=== PATIENT | male | born 1990 ===

== ENCOUNTER 2017-08-06 17:55 | Inpatient (IN) | payer BC ==
[2017-08-06] MEDS ORDERED: Sodium Chloride 0.9% 1,000 ML IV STA (19:02)
--- NOTE | 2017-08-06 19:10 | C.PDOC ---
History Of Present Illness 27 y/o M c PMHx HTN p/w subjective fevers, body aches, general weakness, congestion, facial pain x 5 days. Patient attempted OTC medications without resolution and states he is feeling worse so he came to ED. He denies cough, sick contacts, recent travel, leg swelling, hormone use, hemoptysis, previous DVT/PE, chest pain, dyspnea, vomiting. Patient has known HTN that is typically about 180 systolic and he just started HTN medication today. Time Seen by Provider: 08/06/17 18:41 Chief Complaint (Nursing): Flu-like Symptoms Past Medical History Vital Signs: Last Vital Signs Temp 98 F 08/06/17 21:18 Pulse 98 H 08/06/17 21:18 Resp 16 08/06/17 21:18 BP 134/81 08/06/17 21:18 Pulse Ox 98 08/06/17 21:40 - Medical History PMH: HTN Family History: States: No Known Family Hx - Social History Hx Alcohol Use: Yes Hx Substance Use: No - Immunization History Hx Tetanus Toxoid Vaccination: No Hx Influenza Vaccination: No Hx Pneumococcal Vaccination: No Review Of Systems Except As Marked, All Systems Reviewed And Found Negative. Cardiovascular: Negative for: Chest Pain Gastrointestinal: Negative for: Vomiting Physical Exam - Physical Exam Additional Physical Exam Comments: Constitutional: No acute distress. Head: Normocephalic. Atraumatic, L sided facial swelling and maxillary tenderness. Eyes: PERRL. ENT: Moist mucous membranes. Neck: Supple. Cardiovascular: Regular rate, Tachycardic. Radial pulse 2+ bilaterally. Chest: No tenderness. Respiratory: Clear to auscultation bilaterally. GI: Soft. Nontender. Nondistended. Back: No CVA tenderness. Musculoskeletal: No tenderness or swelling of extremities. Skin: No rash. Neurologic: Alert, no focal deficit. ED Course And Treatment - Laboratory Results Result Diagrams: 08/06/17 19:35 08/06/17 19:35 O2 Sat by Pulse Oximetry: 98 Medical Decision Making Medical Decision Making: EXAM: CT Maxillofacial With Intravenous Contrast EXAM DATE/TIME: 08/06/2017 7:04 PM CLINICAL HISTORY: 27 years old, male; Signs and symptoms; Other: Left side facial swelling; Additional info: Facial swelling, fever, R/O sinusitis/abscess TECHNIQUE: Axial computed tomography images of the face with intravenous contrast. All CT scans at this facility use one or more dose reduction techniques, viz.: automated exposure control; ma/ kV adjustment per patient size (including targeted exams where dose is matched to indication; i.e. head); or iterative reconstruction technique. Coronal and sagittal reformatted images were created and reviewed. CONTRAST: 100 mL of [id number] administered intravenously. COMPARISON: There are no prior studies for comparison. FINDINGS: Sinuses: There is pansinusitis. There is complete opacification of the left maxillary sinus. There is almost complete opacification of the right maxillary sinus. There is frontal opacification of the osteomeatal complexes. Bones: There are no facial bone fractures. There are degenerative changes in the upper cervical spine. Soft tissues: There is minimal right facial edema. There is edema in subcutaneous fat of the left cheek. Retropharyngeal soft tissues are unremarkable. Parapharyngeal spaces are symmetric. Brain: No focal abnormalities are seen in visualized portion of the brain. Vasculature: Vascular structures are unremarkable. Lymph nodes: There is shotty adenopathy. Orbits: Orbital contents are unremarkable. Salivary glands: Parotid and submandibular glands are unremarkable. Sinuses: See above. Mastoid air cells: Ears and mastoids: Middle ears and mastoids are unremarkable. Dental: Streak artifact from dental fillings degrades image quality. There are dental caries. There are apical erosions in the posterior left mandible. Airway: There is edema edema and mucosal thickening in the nasal cavity greatest on the left. There is no air reconstruction. Tonsils and adenoids: There is prominence of tonsils and adenoids. IMPRESSION: Pansinusitis; no facial abscess Patient with improved vital signs. UA with 30 WBC, pansinusitis on CT, leukocytosis, lactate 2.3. CODE SEPSIS was called. Patient without hypotension, hypertensive on arrival, will improve with IVF, no indication for 4L IVF in 30 minutes. Disposition - Disposition Disposition: HOSPITALIZED Disposition Time: 21:55 Condition: FAIR Forms: [facility] (Romansh) - POA Core Measure Indicators: Code Sepsis - Clinical Impression Clinical Impression: Sepsis, Acute pansinusitis
[2017-08-06 19:34] LABS: VENOUS BLOOD GAS PCO2 46 mmHg (40-60); VENOUS BLOOD GAS PO2 33 mm/Hg (30-55)
[2017-08-06] MEDS ORDERED: Sodium Chloride 0.9% 1,000 ML ONE (19:39)
[2017-08-06 19:49] LABS: BASO # 0.1 K/uL (0.0-0.2); BASO % 0.4 % (0.0-2.0); HEMOGLOBIN 18.4 g/dL (12.0-18.0); LYMPH # 1.4 K/uL (1.0-4.3); LYMPH % 8.7 % (20.0-40.0); MEAN CELL VOLUME 86.3 fL (80.0-94.0); MEAN CORPUSCULAR HEMOGLOBIN 29.5 pg (27.0-31.0); MEAN CORPUSCULAR HGB CONC 34.2 g/dL (33.0-37.0); MEAN PLATELET VOLUME 8.8 fL (7.2-11.7); MONO # 1.9 K/uL (0.0-0.8); MONO % 11.3 % (0.0-10.0); NEUT # 13.2 K/uL (1.8-7.0); NEUT % 79.6 % (50.0-75.0); NRBC % 0.1 % (0.0-2.0); PLATELET COUNT 325 K/uL (130-400); RBC 6.25 Mil/uL (4.40-5.90); RED CELL DISTRIBUTION WIDTH 14.1 % (11.5-14.5); WHITE BLOOD COUNT 16.6 K/uL (4.8-10.8)
[2017-08-06 19:58] LABS: ALBUMIN 4.5 g/dL (3.5-5.0); ALT/SGPT 34 U/L (21-72); AST/SGOT 26 U/L (17-59); BLOOD UREA NITROGEN 10 mg/dL (9-20); CALCIUM 9.1 mg/dl (8.6-10.4); GFR AFRICAN-AMERICAN > 60; GFR NON-AFRICAN AMERICAN > 60
[2017-08-06 20:02] LABS: ALB/GLOB RATIO 0.9 (1.0-2.1); SQUAMOUS EPITHIAL 1 /hpf (0-5); URINE BACTERIA RARE (<OCC); URINE BILIRUBIN NEGATIVE (NEGATIVE); URINE BLOOD NEGATIVE (NEGATIVE); URINE CLARITY Hazy (Clear); URINE COLOR Amber (YELLOW); URINE GLUCOSE (UA) 1+ mg/dL (Normal); URINE LEUKOCYTE ESTERASE NEG Leu/uL (Negative); URINE NITRATE NEGATIVE (NEGATIVE); URINE PROTEIN 2+ mg/dL (NEGATIVE)
[2017-08-06] MEDS ORDERED: Cefepime IV 2 gm in Dextrose 2 GM/100 ML BAG IVPB SCH (20:15)
[2017-08-06 20:51] LABS: LYMPHOCYTE 7 % (20-40); MONOCYTE 6 % (0-10); NEUTROPHIL 87 % (50-75); PLATELET ESTIMATE NORMAL (NORMAL); TOTAL CELLS COUNTED 100
[2017-08-06] MEDS ORDERED: Iodixanol 320 MG/ML 100 ML BOTTLE IV ONE (20:56)
--- NOTE | 2017-08-06 21:38 | CT ---
EXAM: CT Maxillofacial With Intravenous Contrast EXAM DATE/TIME: 08/06/2017 7:04 PM CLINICAL HISTORY: 27 years old, male; Signs and symptoms; Other: Left side facial swelling; Additional info: Facial swelling, fever, R/O sinusitis/abscess TECHNIQUE: Axial computed tomography images of the face with intravenous contrast. All CT scans at this facility use one or more dose reduction techniques, viz.: automated exposure control; ma/kV adjustment per patient size (including targeted exams where dose is matched to indication; i.e. head); or iterative reconstruction technique. Coronal and sagittal reformatted images were created and reviewed. CONTRAST: 100 mL of [id number] administered intravenously. COMPARISON: There are no prior studies for comparison. FINDINGS: Sinuses: There is pansinusitis. There is complete opacification of the left maxillary sinus. There is almost complete opacification of the right maxillary sinus. There is frontal opacification of the osteomeatal complexes. Bones: There are no facial bone fractures. There are degenerative changes in the upper cervical spine. Soft tissues: There is minimal right facial edema. There is edema in subcutaneous fat of the left cheek. Retropharyngeal soft tissues are unremarkable. Parapharyngeal spaces are symmetric. Brain: No focal abnormalities are seen in visualized portion of the brain. Vasculature: Vascular structures are unremarkable. Lymph nodes: There is shotty adenopathy. Orbits: Orbital contents are unremarkable. Salivary glands: Parotid and submandibular glands are unremarkable. Sinuses: See above. Mastoid air cells: Ears and mastoids: Middle ears and mastoids are unremarkable. Dental: Streak artifact from dental fillings degrades image quality. There are dental caries. There are apical erosions in the posterior left mandible. Airway: There is edema edema and mucosal thickening in the nasal cavity greatest on the left. There is no air reconstruction. Tonsils and adenoids: There is prominence of tonsils and adenoids. IMPRESSION: Pansinusitis; no facial abscess
[2017-08-06] MEDS: Sodium Chloride 0.9% 1,000 ML IV SCH (22:17)
[2017-08-06 22:42] LABS: VENOUS BLOOD GAS BASE EXCESS -0.2 mmol/L (0.0-2.0); VENOUS BLOOD GAS PCO2 44 mmHg (40-60); VENOUS BLOOD GAS PO2 35 mm/Hg (30-55); VENOUS BLOOD PH 7.37 (7.32-7.43)
[2017-08-07] MEDS ORDERED: guaiFENesin 600 mg ER Tab PO ONE (04:42)
--- NOTE | 2017-08-07 08:32 | RAD ---
HISTORY: fever COMPARISON: No prior. TECHNIQUE: Chest PA and lateral FINDINGS: LUNGS: No evidence of focal infiltrate or consolidation in the lungs. PLEURA: No significant pleural effusion identified. No pneumothorax apparent. CARDIOVASCULAR: Normal. OSSEOUS STRUCTURES: No significant abnormalities. VISUALIZED UPPER ABDOMEN: Normal. OTHER FINDINGS: None. IMPRESSION: No active disease.
[2017-08-07] MEDS ORDERED: AMLODIPIN PO SCH (10:00)
[2017-08-07] MEDS ORDERED: HCTHIAZID PO SCH (10:00)
[2017-08-07] MEDS ORDERED: Cefepime 1 GM in Sodium Chloride 0.9% 50 ML IVPB SCH (10:00)
[2017-08-07] MEDS ORDERED: Home Med 1 UNIT (Levocetirizine Dihydrochloride [Levocetirizine Dihydrochloride] 5 MG) PO SCH (10:00)
[2017-08-07] MEDS ORDERED: OLMESARTAN PO SCH (10:00)
[2017-08-07] MEDS: Enoxaparin 40 mg Syringe SC SCH (10:05)
[2017-08-07] MEDS: Pantoprazole 40 mg EC Tab PO SCH (10:05)
[2017-08-07] MEDS: Sodium Chloride 0.9% 1,000 ML IV SCH (13:55)
[2017-08-07] MEDS ORDERED: Potassium Chloride 20 mEq ER Tab PO STA (14:55)
--- NOTE | 2017-08-07 15:39 | CP.PCM.HP ---
Past Patient History - Infectious Disease Hx of Infectious Diseases: None - Past Medical History & Family History Past Medical History?: Yes - Past Social History Smoking Status: hookah - CARDIAC Hx Hypertension: Yes - MUSCULOSKELETAL/RHEUMATOLOGICAL Hx Falls: No - PSYCHIATRIC Hx Substance Use: No - SURGICAL HISTORY Hx Surgeries: No - ANESTHESIA Hx Anesthesia: No Meds Allergies/Adverse Reactions: Allergies Allergy/AdvReac Type Severity Reaction Status Date / Time No Known Allergies Allergy Verified 08/06/17 18:01 Physical Exam - Constitutional Appears: Well - Head Exam Head Exam: ATRAUMATIC, NORMAL INSPECTION, NORMOCEPHALIC - Eye Exam Eye Exam: EOMI, Normal appearance, PERRL Pupil Exam: NORMAL ACCOMODATION, PERRL - ENT Exam ENT Exam: Mucous Membranes Moist, Normal Exam - Neck Exam Neck exam: Positive for: Normal Inspection - Respiratory Exam Respiratory Exam: Decreased Breath Sounds - Cardiovascular Exam Cardiovascular Exam: REGULAR RHYTHM, +S1, +S2 - GI/Abdominal Exam GI & Abdominal Exam: Diminished Bowel Sounds, Soft - Rectal Exam Rectal Exam: Deferred Results - Vital Signs Recent Vital Signs: Last Vital Signs Temp 98.6 F 08/07/17 09:00 Pulse 110 H 08/07/17 13:30 Resp 20 08/07/17 08:17 BP 160/87 H 08/07/17 11:30 Pulse Ox 98 08/07/17 08:17 - Labs Result Diagrams: 08/06/17 19:35 08/06/17 19:35 Labs: Laboratory Results - last 24 hr 08/06/17 08/06/17 08/06/17 19:00 19:28 19:35 WBC 16.6 H RBC 6.25 H Hgb 18.4 H Hct 53.9 H MCV 86.3 MCH 29.5 MCHC 34.2 RDW 14.1 Plt Count 325 MPV 8.8 Neut % (Auto) 79.6 H Lymph % (Auto) 8.7 L [place] % (Auto) 11.3 H Eos % (Auto) 0.0 Baso % (Auto) 0.4 Neut # 13.2 H Lymph # 1.4 [place] # 1.9 H Eos # 0.0 Baso # 0.1 Neutrophils % (Manual) 87 H Lymphocytes % (Manual) 7 L Monocytes % (Manual) 6 Platelet Estimate Normal pO2 33 VBG pH 7.40 VBG pCO2 46 VBG HCO3 26.3 VBG Total CO2 29.9 H VBG O2 Sat (Calc) 71.0 H VBG Base Excess 3.0 H VBG Potassium 3.9 Sodium 135.0 Chloride 99.0 Glucose 139 H Lactate 2.3 H Potassium Carbon Dioxide Anion Gap BUN Creatinine Est GFR ( Amer) Est GFR (Non-Af Amer) Random Glucose Calcium Total Bilirubin AST ALT Alkaline Phosphatase Total Protein Albumin Globulin Albumin/Globulin Ratio Venous Blood Potassium 3.9 Urine Color Urine Clarity Urine pH Ur Specific [place] Urine Protein Urine Glucose (UA) Urine Ketones Urine Blood Urine Nitrate Urine Bilirubin Urine Urobilinogen Ur Leukocyte Esterase Urine WBC (Auto) Urine RBC (Auto) Ur Squamous Epith Cells Urine Bacteria Influenza Typ A,B (EIA) Negative for flu a/b 08/06/17 08/06/17 08/06/17 19:35 19:35 22:38 WBC RBC Hgb Hct MCV MCH MCHC RDW Plt Count MPV Neut % (Auto) Lymph % (Auto) [place] % (Auto) Eos % (Auto) Baso % (Auto) Neut # Lymph # [place] # Eos # Baso # Neutrophils % (Manual) Lymphocytes % (Manual) Monocytes % (Manual) Platelet Estimate pO2 35 VBG pH 7.37 VBG pCO2 44 VBG HCO3 23.9 VBG Total CO2 26.8 VBG O2 Sat (Calc) 73.6 H VBG Base Excess -0.2 L VBG Potassium 3.7 Sodium 131 L 134.0 Chloride 94 L 102.0 Glucose 132 H Lactate 1.7 Potassium 3.5 L Carbon Dioxide 27 Anion Gap 14 BUN 10 Creatinine 1.1 Est GFR ( Amer) > 60 Est GFR (Non-Af Amer) > 60 Random Glucose 144 H Calcium 9.1 Total Bilirubin 1.5 H AST 26 ALT 34 Alkaline Phosphatase 108 Total Protein 9.3 H Albumin 4.5 Globulin 4.8 H Albumin/Globulin Ratio 0.9 L Venous Blood Potassium 3.7 Urine Color [place] Urine Clarity Hazy Urine pH 6.0 Ur Specific [place] 1.023 Urine Protein 2+ H Urine Glucose (UA) 1+ H Urine Ketones Negative Urine Blood Negative Urine Nitrate Negative Urine Bilirubin Negative Urine Urobilinogen 4.0 Ur Leukocyte Esterase Neg Urine WBC (Auto) 30 H Urine RBC (Auto) 2 Ur Squamous Epith Cells 1 Urine Bacteria Rare Influenza Typ A,B (EIA)
[2017-08-07] MEDS: HYDROmorphone 1 mg/ml ISec IVP PRN (15:59)
[2017-08-08 07:33] LABS: BASO # 0.1 K/uL (0.0-0.2); BASO % 0.5 % (0.0-2.0); EOS % 0.1 % (0.0-4.0); LYMPH # 3.7 K/uL (1.0-4.3); LYMPH % 30.5 % (20.0-40.0); MEAN CELL VOLUME 86.9 fL (80.0-94.0); MEAN CORPUSCULAR HEMOGLOBIN 29.8 pg (27.0-31.0); MEAN CORPUSCULAR HGB CONC 34.3 g/dL (33.0-37.0); MEAN PLATELET VOLUME 8.7 fL (7.2-11.7); MONO # 1.4 K/uL (0.0-0.8); MONO % 11.5 % (0.0-10.0); NEUT # 6.9 K/uL (1.8-7.0); NEUT % 57.4 % (50.0-75.0); NRBC % 0.1 % (0.0-2.0); RBC 5.37 Mil/uL (4.40-5.90); RED CELL DISTRIBUTION WIDTH 14.3 % (11.5-14.5); WHITE BLOOD COUNT 12.1 K/uL (4.8-10.8)
[2017-08-08 07:36] LABS: ALB/GLOB RATIO 0.9 (1.0-2.1); ALBUMIN 3.5 g/dL (3.5-5.0); ALT/SGPT 37 U/L (21-72); AST/SGOT 38 U/L (17-59); BLOOD UREA NITROGEN 9 mg/dL (9-20); CALCIUM 7.8 mg/dl (8.6-10.4); GFR AFRICAN-AMERICAN > 60; GFR NON-AFRICAN AMERICAN > 60
[2017-08-08] MEDS: Enoxaparin 40 mg Syringe SC SCH (09:50)
[2017-08-08] MEDS: Pantoprazole 40 mg EC Tab PO SCH (09:50)
[2017-08-08] MEDS: HYDROCHLOROTHIAZIDE PO SCH (09:51)
[2017-08-08] MEDS: OLMESARTAN PO SCH (09:51)
[2017-08-08] MEDS: AMLODIPINE PO SCH (09:51)
--- NOTE | 2017-08-08 10:09 | CP.PCM.PN ---
Subjective - Date & Time of Evaluation Date of Evaluation: 08/08/17 Time of Evaluation: 10:09 - Subjective Subjective: PGY2 medicine progress note for Dr. Renee's service Patient seen and examined. Patient is a 27 year old male with PMHx HTN. He states he was treated by his PMD for a sinus infection in June 2017 without complete resolution. Patient did not have follow up with his PMD after his treatment course of antibiotics. Patient states that he felt his symptoms of nasal congestion, head pressure, and headache worsening last Monday and he began OTC cold medications. He states that over the weekend he felt very weak and had no energy and decided to come to the hospital. Patient was Code Sepsis in the ER with elevated WBC, fever 100.5, and elevated lactate. Patient currently complains of left facial pressure and pain in teeth in left maxilla. Patient reports good appetite and denies nausea, vomiting, fever, chills. Objective - Vital Signs/Intake and Output Vital Signs (last 24 hours): Temp Pulse Resp BP Pulse Ox 98.8 F 98 H 18 168/95 H 98 08/08/17 08:24 08/08/17 09:48 08/08/17 08:24 08/08/17 09:48 08/08/17 08:24 Intake and Output: 08/08/17 08/08/17 06:59 18:59 Intake Total 1280 Balance 1280 - Medications Medications: Current Medications Acetaminophen (Tylenol 325mg Tab) 650 mg PO Q6 PRN PRN Reason: Fever >100.4 F Last Admin: 08/07/17 08:00 Dose: 650 mg Amlodipine Besylate (Norvasc) 5 mg PO DAILY [facility] Last Admin: 08/08/17 09:50 Dose: 5 mg Enoxaparin Sodium (Lovenox) 40 mg SC DAILY [facility] Last Admin: 08/08/17 09:50 Dose: 40 mg Home Med (Patient's Own Medication) 1 tab PO DAILY [facility] Last Admin: 08/08/17 09:51 Dose: 1 tab Hydromorphone HCl (Dilaudid) 1 mg IVP Q8 PRN PRN Reason: pain Last Admin: 08/07/17 15:59 Dose: 1 mg Sodium Chloride (Sodium Chloride 0.9%) 1,000 mls @ 60 mls/hr IV .[id number] [facility] Last Admin: 08/07/17 13:55 Dose: 60 mls/hr Cefepime HCl 1 gm/ Dextrose 50 mls @ 100 mls/hr IVPB Q12H [facility] Last Admin: 08/08/17 00:10 Dose: 100 mls/hr Loratadine (Claritin) 10 mg PO DAILY [facility] Last Admin: 08/08/17 09:50 Dose: 10 mg Pantoprazole Sodium (Protonix Ec Tab) 40 mg PO DAILY [facility] Last Admin: 08/08/17 09:50 Dose: 40 mg Prednisone (Prednisone Tab) 20 mg PO DAILY [facility] Last Admin: 08/08/17 09:50 Dose: 20 mg Pseudoephedrine HCl (Sudafed Tab) 60 mg PO BID [facility] Last Admin: 08/08/17 09:50 Dose: 60 mg - Labs Labs: 08/08/17 07:09 08/08/17 07:09 - Constitutional Appears: No Acute Distress - Head Exam Head Exam: ATRAUMATIC, NORMOCEPHALIC Additional comments: tenderness on palpation of left frontal sinus, left maxillary sinus - Eye Exam Eye Exam: EOMI - ENT Exam ENT Exam: Mucous Membranes Dry Additional comments: multiple carious teeth - Respiratory Exam Respiratory Exam: Clear to Ausculation Bilateral - Cardiovascular Exam Cardiovascular Exam: +S1, +S2 - GI/Abdominal Exam GI & Abdominal Exam: Soft, Normal Bowel Sounds. absent: Tenderness - Extremities Exam Extremities Exam: Normal Inspection. absent: Pedal Edema - Neurological Exam Neurological Exam: Alert, Awake, Oriented x3 - Psychiatric Exam Psychiatric exam: Normal Affect - Skin Skin Exam: Dry, Warm Assessment and Plan - Assessment and Plan (Free Text) Assessment: Pansinusitis CT Face with IV contrast: complete opacification of the left maxillary sinus. There is almost complete opacification of the right maxillary sinus. There is frontal opacification of the osteomeatal complexes. There is minimal right facial edema. There is edema in subcutaneous fat of the left cheek. Retropharyngeal soft tissues are unremarkable. Parapharyngeal spaces are symmetric. IMPRESSION: Pansinusitis; no facial abscess Continue Cefepime 1g Q12h continue Claritin 10mg PO daily Continue Sudafed 60mg PO BID discontinue Prednisone 20mg PO Daily Patient was Code Sepsis on Admission 08/06/17 with temp 100.5, WBC 16.6, lactate 2.3 with source of infection Repeat lactate 08/06/[address] Huerta, ID, consulted, help appreciated Dr. Vega, ENT, consulted, help appreciated HTN patient recently started on combination pill: Olmersartan 20mg/ Norvasc 5mg/ HCTZ 12.5mg- continue while inpatient additional 5mg Norvasc daily will continue to monitor Prophylaxis protonix 40mg PO Daily Lovenox 40mg sc daily All medical management as per Dr. Renee
--- NOTE | 2017-08-08 11:40 | CP.PCM.PN ---
Subjective - Date & Time of Evaluation Date of Evaluation: 08/08/17 Time of Evaluation: 14:20 - Subjective Subjective: clinically same Objective - Vital Signs/Intake and Output Vital Signs (last 24 hours): Temp Pulse Resp BP Pulse Ox 98.8 F 98 H 18 168/95 H 98 08/08/17 08:24 08/08/17 09:48 08/08/17 08:24 08/08/17 09:48 08/08/17 08:24 Intake and Output: 08/08/17 08/08/17 06:59 18:59 Intake Total 1280 Balance 1280 - Medications Medications: Current Medications Acetaminophen (Tylenol 325mg Tab) 650 mg PO Q6 PRN PRN Reason: Fever >100.4 F Last Admin: 08/07/17 08:00 Dose: 650 mg Amlodipine Besylate (Norvasc) 5 mg PO DAILY [facility] Last Admin: 08/08/17 09:50 Dose: 5 mg Enoxaparin Sodium (Lovenox) 40 mg SC DAILY [facility] Last Admin: 08/08/17 09:50 Dose: 40 mg Home Med (Patient's Own Medication) 1 tab PO DAILY [facility] Last Admin: 08/08/17 09:51 Dose: 1 tab Hydromorphone HCl (Dilaudid) 1 mg IVP Q8 PRN PRN Reason: pain Last Admin: 08/07/17 15:59 Dose: 1 mg Sodium Chloride (Sodium Chloride 0.9%) 1,000 mls @ 60 mls/hr IV .[id number] [facility] Last Admin: 08/07/17 13:55 Dose: 60 mls/hr Cefepime HCl 1 gm/ Dextrose 50 mls @ 100 mls/hr IVPB Q12H [facility] Last Admin: 08/08/17 11:32 Dose: 100 mls/hr Loratadine (Claritin) 10 mg PO DAILY [facility] Last Admin: 08/08/17 09:50 Dose: 10 mg Pantoprazole Sodium (Protonix Ec Tab) 40 mg PO DAILY [facility] Last Admin: 08/08/17 09:50 Dose: 40 mg Prednisone (Prednisone Tab) 20 mg PO DAILY [facility] Last Admin: 08/08/17 09:50 Dose: 20 mg Pseudoephedrine HCl (Sudafed Tab) 60 mg PO BID [facility] Last Admin: 08/08/17 09:50 Dose: 60 mg - Labs Labs: 08/08/17 07:09 08/08/17 07:09 - Constitutional Appears: Well - Head Exam Head Exam: ATRAUMATIC, NORMAL INSPECTION, NORMOCEPHALIC - Eye Exam Eye Exam: EOMI, Normal appearance, PERRL Pupil Exam: NORMAL ACCOMODATION, PERRL - ENT Exam ENT Exam: Mucous Membranes Moist, Normal Exam - Respiratory Exam Respiratory Exam: Decreased Breath Sounds - Cardiovascular Exam Cardiovascular Exam: REGULAR RHYTHM, +S1, +S2 - GI/Abdominal Exam GI & Abdominal Exam: Soft, Diminished Bowel Sounds - Rectal Exam Rectal Exam: Deferred
--- NOTE | 2017-08-08 13:20 | CARD ---
APPROVED REPORT EKG Measurement Heart [id number] <Conclusion> Sinus tachycardia Voltage criteria for left ventricular hypertrophy T wave abnormality, consider lateral ischemia Abnormal ECG
--- NOTE | 2017-08-08 16:24 | CP.PCM.CON ---
History of Present Illness - History of Present Illness History of Present Illness: 27 y/o M c PMHx HTN p/w subjective fevers, body aches, general weakness, congestion, facial pain x 5 days. Patient attempted OTC medications without resolution and states he is feeling worse so he came to ED. He denies cough, sick contacts, recent travel, leg swelling, hormone use, hemoptysis, previous DVT/PE, chest pain, dyspnea, vomiting. Patient has known HTN that is typically about 180 systolic and he just started HTN medication today. referred for id eval severe pansinusitis Review of Systems - Constitutional Constitutional: As Per HPI, Chills, Headache - EENT Eyes: As Per HPI, Pain. absent: Blurred Vision, Exophthalmos Ears: absent: As Per HPI, Decreased Hearing, Ear Discharge, Ear Pain, Tinnitus, Abnormal Hearing, Disequilibrium, Dizziness, Other Nose/Mouth/Throat: As Per HPI, Nasal Congestion, Nasal Discharge, Nose Pain - Cardiovascular Cardiovascular: absent: As Per HPI, Acrocyanosis, Chest Pain, Chest Pain at Rest , Chest Pain with Activity, Claudication, Diaphoresis, Dyspnea, Dyspnea on Exertion, Edema, Irregular Heart Rhythm, Pain Radiating to Arm/Neck/Jaw, Leg Edema, Leg Ulcers, Lightheadedness, Orthopnea, Palpitations, Paroxysmal Nocturnal Dyspnea, Pedal Edema, Radiating Pain, Rapid Heart Rate, Slow Heart Rate, Syncope, Other - Respiratory Respiratory: absent: As Per HPI, Cough, Dyspnea, Hemoptysis, Dyspnea on Exertion , Wheezing, Snoring, Stridor, Pain on Inspiration, Chest Congestion, Excessive Mucous Production, Change in Mucous Color, Pain with Coughing, Other - Gastrointestinal Gastrointestinal: absent: As Per HPI, Abdominal Pain, Belching, Bloating, Change in Bowel Habits, Change in Stool Character, Coffee Ground Emesis, Constipation, Cramping, Diarrhea, Dyspepsia, Dysphagia, Early Satiety, Excessive Flatus, Fecal Incontinence, Heartburn, Hematemesis, Hematochezia, Loose Stools, Melena, Nausea, Odynophagia, Temesmus, Vomiting, Other - Genitourinary Genitourinary: absent: As Per HPI, Change in Urinary Stream, Difficulty Urinating, Dysuria, Flank Pain, Hematuria, Pyuria, Nocturia, Urinary Incontinence, Urinary Frequency, Urinary Hesitance, Urinary Urgency, Voiding Freq/Small Amts, Freq UTI, Hx Renal/Bladder Calculi, Hx /Renal Surgery, Bladder Distension, Other - Musculoskeletal Musculoskeletal: absent: As Per HPI, Abnormal Gait, Arthralgias, Atrophy, Back Pain, Deformity, Joint Swelling, Limited Range of Motion, Loss of Height, Muscle Cramps, Muscle Weakness, Myalgias, Neck Pain, Numbness, Radiating Pain into Limb, Stiffness, Tingling, Other - Integumentary Integumentary: absent: As Per HPI, Acne, Alopecia, Bleeding Lesions, Change in Hair, Change in Nails, Change in Pigmentation, Changing Lesions, Dry Skin, Erythema, Furuncle, Hirsutism, Lesions, New Lesions, Non-Healing Lesions, Photosensitivity, Pruritus, Rash, Skin Pain, Skin Ulcer, Sores, Striae, Swelling , Unusual Bruising, Wounds, Jaundice, Other - Neurological Neurological: absent: As Per HPI, Abnormal Gait, Abnormal Hearing, Abnormal Movements, Abnormal Speech, Behavioral Changes, Burning Sensations, Confusion, Convulsions, Disequilibrium, Dizziness, Numbness, Focal Weakness, Frequent Falls , Headaches, Lack of Coordination, Loss of Vision, Memory Loss, Paresthesias, Radicular Pain, Restless Legs, Sensory Deficit, Syncope, Tingling, Tremor, Vertigo, Weakness, Other Visual Disturbances, Other - Psychiatric Psychiatric: absent: As Per HPI, Abnormal Sleep Pattern, Anhedonia, Anxiety, Auditory Hallucinations, Behavioral Changes, Change in Appetite, Change in Libido, Confusion, Depression, Difficulty Concentrating, Hallucinations, Homicidal Ideation, Hopelessness, Irritability, Memory Loss, Mood Swings, Panic Attacks, Paranoia, Suicidal Ideation, Visual Hallucinations, Tactile Hallucinations, Other - Endocrine Endocrine: absent: As Per HPI, Change in Body Appearance, Change in Libido, Cold Intolorance, Deepening of Voice, Excessive Sweating, Fatigue, Flushing, Heat Intolorance, Increase in Ring/Shoe/Hat Size, Palpitations, Polydipsia, Polyphagia, Polyuria, Other - Hematologic/Lymphatic Hematologic: absent: As Per HPI, Easy Bleeding, Easy Bruising, Lymphadenopathy, Other Past Patient History - Infectious Disease Hx of Infectious Diseases: None - Past Medical History & Family History Past Medical History?: Yes - Past Social History Smoking Status: hookah - CARDIAC Hx Hypertension: Yes - MUSCULOSKELETAL/RHEUMATOLOGICAL Hx Falls: No - PSYCHIATRIC Hx Substance Use: No - SURGICAL HISTORY Hx Surgeries: No - ANESTHESIA Hx Anesthesia: No Meds Allergies/Adverse Reactions: Allergies Allergy/AdvReac Type Severity Reaction Status Date / Time No Known Allergies Allergy Verified 08/06/17 18:01 - Medications Medications: Current Medications Acetaminophen (Tylenol 325mg Tab) 650 mg PO Q6 PRN PRN Reason: Fever >100.4 F Last Admin: 08/07/17 08:00 Dose: 650 mg Amlodipine Besylate (Norvasc) 5 mg PO DAILY [facility] Last Admin: 08/08/17 09:50 Dose: 5 mg Enoxaparin Sodium (Lovenox) 40 mg SC DAILY [facility] Last Admin: 08/08/17 09:50 Dose: 40 mg Home Med (Patient's Own Medication) 1 tab PO DAILY [facility] Last Admin: 08/08/17 09:51 Dose: 1 tab Hydromorphone HCl (Dilaudid) 1 mg IVP Q8 PRN PRN Reason: pain Last Admin: 08/07/17 15:59 Dose: 1 mg Sodium Chloride (Sodium Chloride 0.9%) 1,000 mls @ 60 mls/hr IV .[id number] [facility] Last Admin: 08/07/17 13:55 Dose: 60 mls/hr Cefepime HCl 1 gm/ Dextrose 50 mls @ 100 mls/hr IVPB Q12H [facility] Last Admin: 08/08/17 11:32 Dose: 100 mls/hr Loratadine (Claritin) 10 mg PO DAILY [facility] Last Admin: 08/08/17 09:50 Dose: 10 mg Pantoprazole Sodium (Protonix Ec Tab) 40 mg PO DAILY [facility] Last Admin: 08/08/17 09:50 Dose: 40 mg Prednisone (Prednisone Tab) 20 mg PO DAILY [facility] Last Admin: 08/08/17 09:50 Dose: 20 mg Pseudoephedrine HCl (Sudafed Tab) 60 mg PO BID [facility] Last Admin: 08/08/17 09:50 Dose: 60 mg Physical Exam - Constitutional Appears: No Acute Distress - Head Exam Head Exam: ATRAUMATIC, NORMAL INSPECTION, NORMOCEPHALIC - Eye Exam Eye Exam: EOMI, Normal appearance Pupil Exam: NORMAL ACCOMODATION - ENT Exam ENT Exam: Mucous Membranes Dry, Normal Oropharynx - Neck Exam Neck exam: Negative for: Lymphadenopathy - Respiratory Exam Respiratory Exam: Clear to Auscultation Bilateral, Rhonchi - Cardiovascular Exam Cardiovascular Exam: REGULAR RHYTHM, +S1, +S2 - GI/Abdominal Exam GI & Abdominal Exam: Diminished Bowel Sounds, Soft. absent: Tenderness - Rectal Exam Rectal Exam: Deferred - Exam Exam: NORMAL INSPECTION - Extremities Exam Extremities exam: Positive for: pedal pulses present. Negative for: calf tenderness, tenderness - Back Exam Back exam: absent: CVA tenderness (L), CVA tenderness (R) - Neurological Exam Neurological exam: Alert, CN II-XII Intact, Oriented x3 - Psychiatric Exam Psychiatric exam: Normal Mood - Skin Skin Exam: Dry Results - Vital Signs Recent Vital Signs: Last Vital Signs Temp 98.4 F 08/08/17 15:00 Pulse 93 H 08/08/17 16:00 Resp 20 08/08/17 15:00 BP 171/95 H 08/08/17 15:00 Pulse Ox 99 08/08/17 15:00 - Labs Result Diagrams: 08/08/17 07:09 08/08/17 07:09 Labs: Laboratory Results - last 24 hr 08/08/17 08/08/17 07:09 07:09 WBC 12.1 H RBC 5.37 Hgb 16.0 D Hct 46.6 MCV 86.9 MCH 29.8 MCHC 34.3 RDW 14.3 Plt Count 284 MPV 8.7 Neut % (Auto) 57.4 Lymph % (Auto) 30.5 [place] % (Auto) 11.5 H Eos % (Auto) 0.1 Baso % (Auto) 0.5 Neut # 6.9 Lymph # 3.7 [place] # 1.4 H Eos # 0.0 Baso # 0.1 Sodium 133 Potassium 3.9 Chloride 100 Carbon Dioxide 26 Anion Gap 10 BUN 9 Creatinine 0.8 Est GFR ( Amer) > 60 Est GFR (Non-Af Amer) > 60 Random Glucose 105 Calcium 7.8 L Total Bilirubin 0.9 AST 38 ALT 37 Alkaline Phosphatase 71 Total Protein 7.2 Albumin 3.5 D Globulin 3.7 Albumin/Globulin Ratio 0.9 L Assessment & Plan (1) Acute pansinusitis Status: Acute (2) Sepsis Status: Acute - Assessment and Plan (Free Text) Assessment: sever pansinusitis resolving sepsis cont iv antibiotics check HIV status
[2017-08-08] MEDS: HYDROmorphone 1 mg/ml ISec IVP PRN (16:56)
--- NOTE | 2017-08-08 18:08 | CON ---
DATE: 08/08/2017 REASON FOR CONSULTATION: Sinusitis. REQUESTING PHYISICAN: Dr. Renee. HISTORY OF PRESENT ILLNESS: This is a 27-year-old male with a 2-year history of sinus pain, congestion, that is on and off with runny nose. It is moderate in intensity, comes and goes and lasting a few days, gets better with medicine. It is on both sides of the face and nose. PAST MEDICAL HISTORY: As noted in the chart by me. MEDICATIONS: As noted in the chart by me. ALLERGIES: THERE IS NO KNOWN DRUG ALLERGY. PHYSICAL EXAMINATION: HEAD: Atraumatic, normocephalic. FACE: Good facial movements bilaterally. CONSTITUTIONAL: Well fed, well nourished. COMMUNICATION: Communicates well and appropriately. EXTERNAL NOSE AND EARS: No masses. No lesions. No erythema. No edema. INTERNAL NOSE: Deviated septum. Possible erythema and edema of the mucosa. ORAL CAVITY AND OROPHARYNX: No masses. No lesions. No erythema. No edema. LIPS AND GUMS: No masses. No lesions. No erythema. No edema. NECK: Supple. THYROID: No thyromegaly. No goiter. LYMPH NODES: No lymphadenopathy of the neck. SINUSES: Palpation of the sinuses, there is some pressure over the maxillary, ethmoid, and frontal sinuses. DIAGNOSTIC: CAT scan was checked by me, it shows pansinusitis. ASSESSMENT: 1. Pansinusitis. 2. Deviated septum. PLAN: Patient is okay to be discharged home on p.o. antibiotics and possible steroids or decongestants. He should follow up as an outpatient in the office. Andi Vega MD
[2017-08-09 07:33] LABS: BASO # 0.1 K/uL (0.0-0.2); BASO % 0.6 % (0.0-2.0); EOS # 0.1 K/uL (0.0-0.7); EOS % 0.8 % (0.0-4.0); LYMPH # 3.4 K/uL (1.0-4.3); LYMPH % 33.9 % (20.0-40.0); MEAN CELL VOLUME 87.5 fL (80.0-94.0); MEAN CORPUSCULAR HEMOGLOBIN 29.7 pg (27.0-31.0); MEAN CORPUSCULAR HGB CONC 33.9 g/dL (33.0-37.0); MEAN PLATELET VOLUME 8.8 fL (7.2-11.7); MONO % 10.5 % (0.0-10.0); NEUT # 5.4 K/uL (1.8-7.0); NEUT % 54.2 % (50.0-75.0); RBC 5.39 Mil/uL (4.40-5.90); RED CELL DISTRIBUTION WIDTH 14.2 % (11.5-14.5)
[2017-08-09 08:06] LABS: ALB/GLOB RATIO 0.9 (1.0-2.1); ALBUMIN 3.6 g/dL (3.5-5.0); ALT/SGPT 60 U/L (21-72); AST/SGOT 52 U/L (17-59); BLOOD UREA NITROGEN 12 mg/dL (9-20); CALCIUM 8.3 mg/dl (8.6-10.4); GFR AFRICAN-AMERICAN > 60; GFR NON-AFRICAN AMERICAN > 60
[2017-08-09] MEDS: Pantoprazole 40 mg EC Tab PO SCH (09:08)
[2017-08-09] MEDS: Enoxaparin 40 mg Syringe SC SCH (09:08)
[2017-08-09] MEDS: OLMESARTAN PO SCH (09:09)
[2017-08-09] MEDS: HYDROCHLOROTHIAZIDE PO SCH (09:09)
[2017-08-09] MEDS: AMLODIPINE PO SCH (09:09)
--- NOTE | 2017-08-09 09:43 | CP.PCM.PN ---
Subjective - Date & Time of Evaluation Date of Evaluation: 08/09/17 Time of Evaluation: 10:07 - Subjective Subjective: PGY 2 Medicine Note- Dr. Zhang Renee's service Pt seen and examined in no acute distress. Patient states that he still feels congested; however overall improved from initial day of presentation. Patient states that denies sinus tenderness or headaches. He does admit to left sided sinus pressure with palpation. He additionally denies subjective fevers or chills, nausea, vomiting, headaches at this time. Objective - Vital Signs/Intake and Output Vital Signs (last 24 hours): Temp Pulse Resp BP Pulse Ox 98.0 F 89 18 148/108 H 98 08/09/17 08:15 08/09/17 08:15 08/09/17 08:15 08/09/17 08:15 08/09/17 08:15 - Medications Medications: Current Medications Acetaminophen (Tylenol 325mg Tab) 650 mg PO Q6 PRN PRN Reason: Fever >100.4 F Last Admin: 08/07/17 08:00 Dose: 650 mg Amlodipine Besylate (Norvasc) 5 mg PO DAILY [facility] Enoxaparin Sodium (Lovenox) 40 mg SC DAILY [facility] Last Admin: 08/09/17 09:08 Dose: 40 mg Home Med (Patient's Own Medication) 1 tab PO DAILY [facility] Last Admin: 08/09/17 09:09 Dose: 1 tab Hydralazine HCl (Apresoline) 10 mg IVP Q6H PRN PRN Reason: Systolic Blood Pressure Last Admin: 08/08/17 16:56 Dose: 10 mg Hydromorphone HCl (Dilaudid) 1 mg IVP Q8 PRN PRN Reason: pain Last Admin: 08/08/17 16:56 Dose: 1 mg Cefepime HCl 1 gm/ Dextrose 50 mls @ 100 mls/hr IVPB Q12H [facility] Last Admin: 08/08/17 23:42 Dose: 100 mls/hr Loratadine (Claritin) 10 mg PO DAILY [facility] Last Admin: 08/09/17 09:08 Dose: 10 mg Pantoprazole Sodium (Protonix Ec Tab) 40 mg PO DAILY [facility] Last Admin: 08/09/17 09:08 Dose: 40 mg Pseudoephedrine HCl (Sudafed Tab) 60 mg PO BID [facility] Last Admin: 08/09/17 09:09 Dose: 60 mg - Labs Labs: 08/09/17 07:24 08/09/17 07:24 - Constitutional Appears: Non-toxic, No Acute Distress - Head Exam Head Exam: ATRAUMATIC, NORMAL INSPECTION, NORMOCEPHALIC - Eye Exam Eye Exam: EOMI, Normal appearance Pupil Exam: NORMAL ACCOMODATION - ENT Exam ENT Exam: Mucous Membranes Moist Additional comments: mild left sided nontender pressure with palpation - Neck Exam Neck Exam: Full ROM - Respiratory Exam Respiratory Exam: NORMAL BREATHING PATTERN. absent: Wheezes - Cardiovascular Exam Cardiovascular Exam: REGULAR RHYTHM, +S1, +S2 - GI/Abdominal Exam GI & Abdominal Exam: Soft, Normal Bowel Sounds - Extremities Exam Extremities Exam: Full ROM, Normal Capillary Refill - Back Exam Back Exam: Full ROM - Neurological Exam Neurological Exam: Alert, Awake, Oriented x3 Neuro motor strength exam: Left Upper Extremity: 5, Right Upper Extremity: 5, Left Lower Extremity: 5, Right Lower Extremity: 5 - Psychiatric Exam Psychiatric exam: Normal Affect, Normal Mood - Skin Skin Exam: Dry, Normal Color, Warm Assessment and Plan - Assessment and Plan (Free Text) Assessment: Pansinusitis On admission 08/06 : CT Face with IV contrast: complete opacification of the left maxillary sinus. There is almost complete opacification of the right maxillary sinus. There is frontal opacification of the osteomeatal complexes. There is minimal right facial edema. There is edema in subcutaneous fat of the left cheek. Retropharyngeal soft tissues are unremarkable. Parapharyngeal spaces are symmetric. IMPRESSION: Pansinusitis; no facial abscess Patient was Code Sepsis on Admission 08/06/17. A presentation that has now resolved. Patient has been afebrile since 08/06. Patient does not currently have a white count. Continue Cefepime 1g Q12H Continue Claritin 10mg PO daily Continue Sudafed 60mg PO BID Dr. Huerta, ID, consulted, help appreciated. Recommendations for HIV panel and continued antibiotic therapy- HIV results were negative Dr. Vega, ENT, consulted, help appreciated. Recommendations for discharge home with either PO steroids or decongestants and outpatient follow up. In light of recently discontinued steroids however; will recommend decongestants at this time. HTN Patient recently started on combination pill: Olmersartan 20mg/ Norvasc 5mg/ HCTZ 12.5mg- Continue while inpatient Additional 5mg Norvasc daily will continue to monitor Prophylactic Measure Protonix 40mg PO Daily Lovenox 40mg sc daily Discharge Instructions Patient is medically stable for discharge home after being seen by Infectious Disease Dr. Huerta. Patient to follow up with Dr. Vega outpatient within the next three days. Patient to follow up with Dr. Zhang Renee in his office on Monday. Patient will be discharged home with the following medications: Augmentin 875-125 mg. Take one tablet by mouth twice daily for seven days. Please eat a probiotic yogurt while taking medication. Patient may take Claritin 10 mg PO daily as indicated and Sudafed 60 mg PO BID through August 10. Patient should inquire about continued use of sudafed upon seeing Dr. Vega outpatient. Patient may resume combination antihypertensive medication as indicated. If symptoms return, go to the emergency room. Instructions explained to patient who is aware. Discussed with attending. All medical management as per Dr. Renee
[2017-08-09] MEDS ORDERED: Pneumococcal 23-Valent Vaccine IM ONE (10:00)
[2017-08-09 16:51] VITALS: BP 134/84; RESP 20; TEMP 97.9; O2SAT 99
[2017-08-09 16:53] VITALS: PULSE 90
--- NOTE | 2017-08-09 16:59 | CP.PCM.PN ---
Subjective - Date & Time of Evaluation Date of Evaluation: 08/09/17 Time of Evaluation: 08:00 - Subjective Subjective: improving less headache NAD Objective - Vital Signs/Intake and Output Vital Signs (last 24 hours): Temp Pulse Resp BP Pulse Ox 97.9 F 90 20 134/84 99 08/09/17 15:00 08/09/17 16:00 08/09/17 15:00 08/09/17 15:00 08/09/17 15:00 - Medications Medications: Current Medications Acetaminophen (Tylenol 325mg Tab) 650 mg PO Q6 PRN PRN Reason: Fever >100.4 F Last Admin: 08/07/17 08:00 Dose: 650 mg Enoxaparin Sodium (Lovenox) 40 mg SC DAILY [facility] Last Admin: 08/09/17 09:08 Dose: 40 mg Home Med (Patient's Own Medication) 1 tab PO DAILY [facility] Last Admin: 08/09/17 09:09 Dose: 1 tab Hydralazine HCl (Apresoline) 10 mg IVP Q6H PRN PRN Reason: Systolic Blood Pressure Last Admin: 08/08/17 16:56 Dose: 10 mg Hydromorphone HCl (Dilaudid) 1 mg IVP Q8 PRN PRN Reason: pain Last Admin: 08/08/17 16:56 Dose: 1 mg Cefepime HCl 1 gm/ Dextrose 50 mls @ 100 mls/hr IVPB Q12H [facility] Last Admin: 08/09/17 11:18 Dose: 100 mls/hr Loratadine (Claritin) 10 mg PO DAILY [facility] Last Admin: 08/09/17 09:08 Dose: 10 mg Pantoprazole Sodium (Protonix Ec Tab) 40 mg PO DAILY [facility] Last Admin: 08/09/17 09:08 Dose: 40 mg Pseudoephedrine HCl (Sudafed Tab) 60 mg PO BID [facility] Last Admin: 08/09/17 09:09 Dose: 60 mg - Labs Labs: 08/09/17 07:24 08/09/17 07:24 - Constitutional Appears: Non-toxic, Chronically Ill - Head Exam Head Exam: NORMOCEPHALIC - Eye Exam Eye Exam: PERRL - ENT Exam ENT Exam: Mucous Membranes Dry - Neck Exam Neck Exam: absent: Lymphadenopathy - Respiratory Exam Respiratory Exam: Decreased Breath Sounds - Cardiovascular Exam Cardiovascular Exam: REGULAR RHYTHM - GI/Abdominal Exam GI & Abdominal Exam: Distended, Soft - Rectal Exam Rectal Exam: Deferred - Exam Exam: NORMAL INSPECTION - Extremities Exam Extremities Exam: absent: Pedal Edema - Back Exam Back Exam: absent: CVA tenderness (L), CVA tenderness (R) - Neurological Exam Neurological Exam: Alert, Awake, Oriented x3 - Psychiatric Exam Psychiatric exam: Normal Mood - Skin Skin Exam: Dry Assessment and Plan (1) Acute pansinusitis Status: Acute (2) Sepsis Status: Acute - Assessment and Plan (Free Text) Assessment: sinusitis improving cont rx follow up PMD
== END 2017-08-09 19:38 | disposition home or self-care (01) | DRG 872 ==
LOC: C.ER 17:55 → C.9E 21:52 → C.6T 22:10 → OBSVTOIN 08-08 18:52
PROVIDERS: ADMIT Internal Medicine Nephrology; ATTEND Internal Medicine Nephrology
DX: A41.9 Sepsis, unspecified organism (principal); I10 Essential (primary) hypertension; J01.40 Acute pansinusitis, unspecified; J34.2 Deviated nasal septum